=== PATIENT | male | born 1950 | race Caucasian/White ===

== ENCOUNTER 2017-01-19 19:37 | Emergency (ER) | payer BC ==
[2017-01-19 19:58] VITALS: BMI 40.4
--- NOTE | 2017-01-19 19:59 | DR.GENAD ---
HPI - PCP Primary Care Physician: DR. MARROQUIN ( [facility] ) - HPI Comment HPI Comment: HISTORY BELOW. - Complaint/Symptoms Chief Complaint Doctors Comments: BEE STING, SEVERAL BEES. RASH, PRURITUS AND SKIN SORENESS. NO SOB OR THROAT DISCOMFORT. TOOK BENADRYL BEFORE COMING. Chief Complaint:: GOT STUNG BY MAYBE 100/200 BEES WHILE MOWING Self Treatment fo Chief Complaint: 2 BENADRYL ABOUT 15 MIN AGO - Nurses notes reviewed Nurses Notes Review: Yes - Source History Provided: Patient - Mode of Arrival Mode of Arrival: Ambulatory - Timing Onset of Chief Complaint: 01/19/17 Came on: Suddenly - Duration Duration: Constant Duration: Hours - Severity Severity: Moderate PMH - PMH Past Medical History: Yes Past Medical History: Coronary Artery Disease, Diabetes, Dyslipidemia, Hypertension, [place], Sleep Apnea Past Surgical History: Yes Surgical History: Angioplasty/Stents, Ortho Surgery - Family History History of Family Medical Conditions: Yes Family Medical History: Diabetes Mellitus, [place], Coronary Artery Disease, Hypertension - Social History Does patient currently use any type of tobacco product: No Have you used tobacco products in the last 12 months: No Type of Tobacco Use: Cigarettes How many years tobacco product used: 15 Does any household member use tobacco: No Alcohol Use: Heavy Do you use any recreational Drugs:: No Lives With: Spouse Lives Where: Home - infectious screening In the last 2 months have you had wt loss of >10#?: NO Have you had fever, night sweats or hemotysis?: No Have you traveled outside the country in the last 6 months?: No Isolation: Standard ROS - Review of Systems Constitutional: No Symptoms Reported Eyes: No Symptoms Reported ENTM: No Symptoms Reported Respiratoy: No Symptoms Reported Cardiovascular: No Symptoms Reported Gastrointestinal/Abdominal: No Symptoms Reported Genitourinary: No Symptoms Reported Neurological: No Symptoms Reported Musculoskeletal: No Symptoms Reported Integumentary: Rash, Itching, Other (SKINE SORENESS) Hematologic/Lymphatic: No Symptoms Reported Endocrine: No Symptoms Reported All Other Systems: Reviewed and Negative PE - Vital Signs Vitals: Temperature 97.8 F Pulse Rate [Left Brachial] 94 Pulse Rate 80 Respiratory Rate 22 Blood Pressure [Left Arm] 168/84 Blood Pressure 155/94 O2 Sat by Pulse Oximetry 99 - General Limitations: No Limitations General Appearance: Alert - Head Head Exam: Normal Inspection - Eyes Eye exam: Normal Appearance - ENT ENT Exam: Normal External Ear Exam TM/Canal Exam: Bilateral Normal Nose Exam: Normal Nose Exam Mouth Exam: Normal Inspection Throat Exam: Normal Inspection - Neck Neck Exam: Trachea Midline - Chest Chest Inspection: Symmetric Chest Wall Rise - Respiratory Respiratory Exam: Normal Lung Sounds Bilat Respiratory Exam: Bilateral Rhonchi, Lower Rhonchi - Cardiovascular Cardiovascular Exam: Regular Rate, Normal Rhythm, Normal Heart Sounds - Abdominal Exam Abdominal Exam: Normal Bowel Sounds, Soft. negative: Tenderness - Extremities Extremities Exam: Normal Inspection - Back Back Exam: Normal Inspection - Neurologic Neurological Exam: Alert, Oriented X3 - Psychiatric Psychiatric Exam: Anxious - Skin Skin Exam: Rash, Erythema, Other (PAPULAR RASH EXTREMITIES AND NECK.) MDM - Differential Diagnosis Differential Diagnosis: ZIMMERMAN RASH, PRURITUS, ALLERGIC REACTION Course - Treatment Treatment: SEE ORDERS. IV BENADRYDL AND SOLUMEDROL. PAIN MED AND REPEAT BENADRYL IN ED. - Reevaluation 1st: Improved - Education/Counseling Education/Counseling: Patient, Education Educated On: Diagnosis, Needs for Follow Up - Diagnosis Discharge Problem: Bee sting Qualifiers: Encounter type: initial encounter Injury intent: accidental or unintentional Qualified Code(s): T63.441A - Toxic effect of venom of bees, accidental ( unintentional), initial encounter Allergic reaction Qualifiers: Encounter type: initial encounter Qualified Code(s): T78.40XA - Allergy, unspecified, initial encounter - Discharge Plan Disposition: 01 HOME, SELF-CARE Condition: Stable Prescriptions: Hydroxyzine Pamoate [Vistaril] 25 mg PO TID PRN #15 cap PRN Reason: Ibuprofen [MOTRIN TAB 800 MG *] 800 mg PO Q8H PRN #20 tab PRN Reason: Pain/Inflammation Methylprednisolone Dosepak 4Mg [MEDROL DOSEPAK (4 mg tab x 21)] 1 mary PO ONCE # 1 mary Sulfamethoxazole-Trimethoprim [BACTRIM DS TAB 800/160 MG *] 1 tab PO BID #20 tab - Follow ups/Referrals Follow ups/Referrals: N[facility],None [Primary Care Provider] - 3 days - Instructions Instructions: Pruritus, Allergies, [id number] Additional Instructions: RETURN TO ED IF WORSE. YOU ALSO HAVE BEE STINGS/INSECT BITE.
[2017-01-19] MEDS ORDERED: SOLU-Medrol 125 MG VIAL IVP ONE (20:07)
[2017-01-19] MEDS ORDERED: BENADRYL INJ 50 MG VIAL IVP ONE ×2 (20:07→22:27)
[2017-01-19] MEDS ORDERED: BENADRYL INJ 50 MG VIAL ONE ×2 (20:11→22:30)
[2017-01-19] MEDS ORDERED: SOLU-Medrol 125 MG VIAL ONE (20:11)
[2017-01-19] MEDS ORDERED: NS 1000 ML 1,000 ML ONE (20:11)
[2017-01-19] MEDS ORDERED: NS 1000 ML 1,000 ML IV SCH (21:00)
[2017-01-19] MEDS ORDERED: TORADOL 30 MG VIAL IVP ONE (21:20)
[2017-01-19] MEDS ORDERED: TORADOL 30 MG VIAL ONE (21:24)
[2017-01-19] MEDS ORDERED: DEMEROL INJ IVP ONE (22:26)
[2017-01-19] MEDS ORDERED: DECADRON INJ IVP ONE (22:29)
[2017-01-19] MEDS ORDERED: DEMEROL INJ ONE (22:31)
[2017-01-19] MEDS ORDERED: DECADRON INJ ONE (22:40)
[2017-01-19 23:41] VITALS: BP 168/84
== END 2017-01-19 23:41 | disposition home or self-care (01) ==
LOC: ER 19:37
DX: T63.441A Toxic effect of venom of bees, accidental (unintentional), initial encounter (principal); T78.40XA Allergy, unspecified, initial encounter
CPT/HCPCS: 96365; 96367; 96374; 96375; 99283; A4222; J1100; J1200; J1885; J2175; J2930